=== PATIENT | female | born 1960 | race Caucasian/White ===

== ENCOUNTER 2017-02-28 10:04 | Inpatient (IN) | payer SELFPAY ==
[2017-02-28] VITALS (7 sets, daily range): BP systolic 110–134; BP diastolic 60–78
[~2017-02-28] VITALS: Ht 162.6 cm; Wt 87.3 kg
[2017-02-28] MEDS ORDERED: CELEXA10 MG PO (10:16)
[2017-02-28 11:37] LABS: BASO % 0.2 % (0.0-1.0); EOS % 0.2 % (1.0-4.0); HEMATOCRIT 42.6 % (37.0-47.0); LYMPH % 5.3 % (27.0-41.0); MEAN CELL VOLUME 93.2 fl (81.0-99.0); MEAN CORPUSCULAR HGB 30.6 pg (27.0-31.0); MEAN CORPUSCULAR HGB CONC 32.9 g/dl (33.0-37.0); MEAN PLATELET VOLUME 10.3 fl (9.6-12.3); MONO % 5.3 % (3.0-9.0); NEUT # 15.8 10*3/uL (2.3-7.9); NEUT % 87.9 % (47.0-73.0); PLATELET COUNT AUTOMATED 228 10*3/uL (130-400); RED BLOOD COUNT 4.57 10*6/uL (4.10-5.10); RED CELL DISTRI WIDTH 13.3 % (0-14.5)
[2017-02-28 11:51] LABS: ALBUMIN 3.5 gm/dl (3.1-4.5); ALKALINE PHOSPHATASE 80 U/L (45-117); BUN 17 mg/dl (7-24); CHLORIDE 105 mmol/L (98-107); CREATININE 0.93 mg/dL (0.55-1.02); POTASSIUM 3.9 mmol/L (3.5-5.1); SGOT/AST 37 IU/L (3-35); SGPT/ALT 39 U/L (12-78); SODIUM 141 mmol/L (136-145); TOTAL PROTEIN 6.8 gm/dL (6.4-8.2)
[2017-02-28 11:53] LABS: ETHYL ALCOHOL < 3.0 mg/dl (<3)
[2017-02-28 23:41] LABS: BILIRUBIN NEGATIVE (NEGATIVE); BLOOD NEGATIVE (NEGATIVE); CLARITY CLEAR (CLEAR); COLOR YELLOW (YELLOW); GLUCOSE NEGATIVE (NEGATIVE); KETONE NEGATIVE (NEGATIVE); LEUKO ESTERASE NEGATIVE (NEGATIVE); NITRITE NEGATIVE (NEGATIVE); UROBILINOGEN 0.2 E.U./dl (0.2-1.0)
[2017-02-28 23:51] LABS: URINE AMPHETAMINES < 1000 (1000ng/ml); URINE BARBITURATES < 200 (200ng/ml); URINE BENZODIAZEPINES < 200 (200ng/ml); URINE CANNABINOIDS (THC) < 50 (50ng/ml); URINE COCAINE > 300 (300ng/ml); URINE METHADONE < 300 (300ng/ml); URINE OPIATES > 300 (300ng/ml)
[2017-02-28 23:57] LABS: URINE PHENCYCLIDINE < 25 (25ng/ml)
[2017-03-01] VITALS: BP 114/70
[2017-03-01 00:01] LABS: BACTERIA 1+; RBC 0-2 rbc/hpf (0-2); WBC 0-2 wbc/hpf (0-5)
[2017-03-01 06:47] LABS: BASO % 0.3 % (0.0-1.0); EOS # 0.1 10*3/uL (0.0-0.4); EOS % 0.5 % (1.0-4.0); HEMATOCRIT 42.1 % (37.0-47.0); HEMOGLOBIN 13.8 g/dl (12.0-16.0); LYMPH % 19.7 % (27.0-41.0); MEAN CORPUSCULAR HGB 31.2 pg (27.0-31.0); MEAN CORPUSCULAR HGB CONC 32.8 g/dl (33.0-37.0); MEAN PLATELET VOLUME 10.8 fl (9.6-12.3); MONO # 0.8 10*3/uL (0.1-1.0); PLATELET COUNT AUTOMATED 216 10*3/uL (130-400); RED BLOOD COUNT 4.43 10*6/uL (4.10-5.10); RED CELL DISTRI WIDTH 13.7 % (0-14.5); WHITE BLOOD COUNT 9.9 10*3/uL (4.8-10.8)
[2017-03-01 07:17] LABS: ALBUMIN 3.3 gm/dl (3.1-4.5); ALKALINE PHOSPHATASE 75 U/L (45-117); BUN 15 mg/dl (7-24); CHLORIDE 100 mmol/L (98-107); CHOLESTEROL 194 mg/dL (<200); CREATININE 0.95 mg/dL (0.55-1.02); FREE T4 0.95 ng/dl (0.76-1.46); HDL CHOLESTEROL 61 mg/dl (40-60); LDL CHOLESTEROL 116 mg/dL (9-159); PHOSPHOROUS 3.7 mg/dL (2.5-4.9); POTASSIUM 3.9 mmol/L (3.5-5.1); SGOT/AST 31 IU/L (3-35); SGPT/ALT 36 U/L (12-78); SODIUM 136 mmol/L (136-145); TOTAL PROTEIN 6.9 gm/dL (6.4-8.2); TRIGLYCERIDES 85 mg/dl (<150); VLDL CHOLESTEROL 17 mg/dL (6-40)
[2017-03-01 07:19] LABS: ACT PARTIAL THROMBO TIME 25.1 SECONDS (20.8-31.5); INTERNATIONAL NORM RATIO 1.1 (2.0-3.5)
[2017-03-01 07:38] LABS: VITAMIN D, 25-HYDROXY 14.5 ng/mL (30-100)
[2017-03-01 08:00] VITALS: BP 104/66
[2017-03-01 12:00] VITALS: BP 104/71
[2017-03-01 16:00] VITALS: BP 101/75
[2017-03-01 20:00] VITALS: BP 97/41
[2017-03-02] VITALS: BP 102/60; BP 93/68
[2017-03-02 08:00] VITALS: BP 118/64
[2017-03-02 12:00] VITALS: BP 116/65; BP 96/67
[2017-03-02 16:00] VITALS: BP 105/65
[2017-03-02 20:00] VITALS: BP 96/67
[2017-03-03] VITALS: BP 108/59
[2017-03-03 08:00] VITALS: BP 142/66
[2017-03-03 12:00] VITALS: BP 115/75
[2017-03-03 16:00] VITALS: BP 122/84
[2017-03-03 20:00] VITALS: BP 126/60
[2017-03-04] VITALS: BP 126/54
[2017-03-04 07:39] LABS: BASO % 0.3 % (0.0-1.0); EOS # 0.4 10*3/uL (0.0-0.4); EOS % 5.9 % (1.0-4.0); HEMATOCRIT 37.4 % (37.0-47.0); HEMOGLOBIN 12.4 g/dl (12.0-16.0); LYMPH # 1.2 10*3/uL (1.3-4.4); LYMPH % 19.7 % (27.0-41.0); MEAN CELL VOLUME 94.4 fl (81.0-99.0); MEAN CORPUSCULAR HGB 31.3 pg (27.0-31.0); MEAN CORPUSCULAR HGB CONC 33.2 g/dl (33.0-37.0); MEAN PLATELET VOLUME 10.4 fl (9.6-12.3); MONO # 0.8 10*3/uL (0.1-1.0); NEUT # 3.6 10*3/uL (2.3-7.9); NEUT % 60.8 % (47.0-73.0); PLATELET COUNT AUTOMATED 203 10*3/uL (130-400); RED BLOOD COUNT 3.96 10*6/uL (4.10-5.10); RED CELL DISTRI WIDTH 13.2 % (0-14.5); WHITE BLOOD COUNT 5.9 10*3/uL (4.8-10.8)
[2017-03-04 08:00] VITALS: BP 138/74
[2017-03-04 12:00] VITALS: BP 122/59
[2017-03-04 16:00] VITALS: BP 133/54
[2017-03-04 20:00] VITALS: BP 133/75
[2017-03-05] VITALS: BP 123/71
[2017-03-05 08:00] VITALS: BP 130/61
[2017-03-05 12:00] VITALS: BP 120/71
[2017-03-05 16:00] VITALS: BP 123/46
[2017-03-05 20:37] VITALS: BP 112/62
[2017-03-06] VITALS: BP 113/63
[2017-03-06 08:00] VITALS: BP 98/74
[2017-03-06] MEDS ORDERED: VITAMIN D-32000 UNIT PO (10:25)
[2017-03-06] MEDS ORDERED: Percocet 325 MG1 TAB PO (10:25)
[2017-03-06] MEDS ORDERED: Motrin,Rufen800 MG PO (10:25)
[2017-03-06] MEDS ORDERED: B12,B-12,B 12500 MC1 PO (10:25)
== END 2017-03-06 11:38 | disposition home or self-care (01) | DRG 552 ==
LOC: ED 10:04 → 4E 17:15 → EDHOLD 17:15 → 4E 17:28
PROVIDERS: Family Medicine; Physician Assistant
DX: S32.10XA Unspecified fracture of sacrum, initial encounter for closed fracture (principal); S32.512A Fracture of superior rim of left pubis, initial encounter for closed fracture; S32.302A Unspecified fracture of left ilium, initial encounter for closed fracture; S32.592A Other specified fracture of left pubis, initial encounter for closed fracture; D72.829 Elevated white blood cell count, unspecified; D72.9 Disorder of white blood cells, unspecified; I10 Essential (primary) hypertension; D72.810 Lymphocytopenia; R73.9 Hyperglycemia, unspecified; R74.0 Nonspecific elevation of levels of transaminase and lactic acid dehydrogenase [LDH]; E55.9 Vitamin D deficiency, unspecified; E53.8 Deficiency of other specified B group vitamins; F14.10 Cocaine abuse, uncomplicated; Z90.11 Acquired absence of right breast and nipple; V49.9XXA Car occupant (driver) (passenger) injured in unspecified traffic accident, initial encounter; Y93.I9 Activity, other involving external motion; Y92.488 Other paved roadways as the place of occurrence of the external cause; Y99.8 Other external cause status; Z85.3 Personal history of malignant neoplasm of breast

== ENCOUNTER → 2017-04-24 | Outpatient (CLI) | payer SELFPAY ==
[~2017-04-24] MED LIST: B12,B-12,B 12500 MC1 PO; CELEXA10 MG PO; Motrin,Rufen800 MG PO; Percocet 325 MG1 TAB PO; VITAMIN D-32000 UNIT PO
== END | disposition home or self-care (01) ==
LOC: ORTHO 01:51
DX: S32.302D Unspecified fracture of left ilium, subsequent encounter for fracture with routine healing (principal); S32.592D Other specified fracture of left pubis, subsequent encounter for fracture with routine healing; S32.599D Other specified fracture of unspecified pubis, subsequent encounter for fracture with routine healing; S32.10XD Unspecified fracture of sacrum, subsequent encounter for fracture with routine healing; X58.XXXD Exposure to other specified factors, subsequent encounter